=== PATIENT | male | born 1955 | race Caucasian/White ===

== ENCOUNTER 2018-01-09 08:11 | Emergency (ER) | payer OTHER ==
[2018-01-09 08:29] VITALS: BP 106/67
--- NOTE | 2018-01-09 08:50 | ED ---
Upper Extremity Pain - HPI Summary HPI Summary: 62 yr old male with the complaint of right anterior shoulder pain. Onset a month ago when he was pushing himself up off the bed. He felt a strain in the shoulder and has had pain since then, worse with trying to tuck his shirt in from behind, and worse with overhead movement. Pain is moderate. He has no other complaints. - History of Current Complaint Chief Complaint: UCUpperExtremity Stated Complaint: BILATERAL SHOULDER PAIN Time Seen by Provider: 01/09/18 08:34 - Allergies/Home Medications Allergies/Adverse Reactions: Allergies Allergy/AdvReac Type Severity Reaction Status Date / Time No Known Allergies Allergy Verified 01/09/18 08:30 Home Medications: Home Medications Furosemide TAB* [Lasix TAB*] 20 mg PO DAILY 01/09/18 [History Confirmed 01/09/18 ] Nadolol TAB* [Corgard TAB*] 40 mg PO DAILY 01/09/18 [History Confirmed 01/09/18] Ondansetron HCl [Zofran] 8 mg PO DAILY PRN 01/09/18 [History Confirmed 01/09/18] RiFAXimin* [Xifaxan*] 550 mg PO BID 01/09/18 [History Confirmed 01/09/18] Rivaroxaban TAB(*) [Xarelto 10 mg (*)] 10 mg PO DAILY 01/09/18 [History Confirmed 01/09/18] Spironolactone TAB* [Aldactone TAB*] 300 mg PO DAILY 01/09/18 [History Confirmed 01/09/18] buPROPion TAB* [Wellbutrin TAB*] 300 mg PO TID 01/09/18 [History Confirmed 01/09] PMH/Surg Hx/FS Hx/Imm Hx Cardiovascular History: Reports: Hx Hypertension GI History: Reports: Hx Gastrointestinal Bleed - Surgical History Surgery Procedure, Year, and Place: tonsilectomy, R wrist surgery Infectious Disease History: No Infectious Disease History: Reports: Hx Hepatitis - Treated 2016 Denies: Traveled Outside the [place] in Last 30 Days - Family History Known Family History: Positive: Hypertension Negative: Cardiac Disease, Diabetes - Social History Alcohol Use: None Substance Use Type: Reports: None Hx Tobacco Use: Yes Smoking Status (MU): Light Every Day Tobacco Smoker Type: Cigarettes Amount Used/How Often: 1 PPD Length of Time of Smoking/Using Tobacco: 42 Years Have You Smoked in the Last Year: Yes Review of Systems Positive: Other - shoulder pain All Other Systems Reviewed And Are Negative: Yes Physical Exam Triage Information Reviewed: Yes Vital Signs On Initial Exam: Initial Vitals Temp Pulse Resp BP Pulse Ox 98.1 F 93 18 106/67 100 01/09/18 08:23 01/09/18 08:23 01/09/18 08:23 01/09/18 08:23 01/09/18 08:23 Vital Signs Reviewed: Yes Appearance: Positive: Well-Appearing, No Pain Distress Skin: Positive: Warm Head/Face: Positive: Normal Head/Face Inspection Eyes: Positive: EOMI ENT: Positive: Normal ENT inspection Neck: Positive: Nontender Respiratory/Lung Sounds: Positive: Other - normal respirator effort. Cardiovascular: Positive: Pulses are Symmetrical in both Upper and Lower Extremities - normal cap refill Abdomen Description: Negative: Distended Musculoskeletal: Positive: Other - tender over the right anterior shoulder, worse with lifting beyond 90 degrees Neurological: Positive: Sensory/Motor Intact, Alert, Oriented to Person Place, Time, CN Intact II-III Psychiatric: Positive: Normal - Nancy Coma Scale Best Eye Response: 4 - Spontaneous Best Motor Response: 6 - Obeys Commands Best Verbal Response: 5 - Oriented Coma Scale Total: 15 Diagnostics - Vital Signs Vital Signs Temp Pulse Resp BP Pulse Ox 01/09/18 08:23 98.1 F 93 18 106/67 100 - Laboratory Lab Statement: Any lab studies that have been ordered have been reviewed, and results considered in the medical decision making process. - Radiology right shoulder Xray Interpretation: No Acute Changes Radiology Interpretation Completed By: Radiologist - Ac joint arthritis Course/Dx - Course Course Of Treatment: 62 yr old with ac joint arthritis, and likely rotator cuff injury. DC home to follow up with orthopedics. - Diagnoses Provider Diagnoses: Acromioclavicular joint arthritis, Rotator cuff injury Discharge - Sign-Out/Discharge Documenting (check all that apply): Discharge/Admit/Transfer - Discharge Plan Condition: Good Disposition: HOME Patient Education Materials: Osteoarthritis (ED), Rotator Cuff Injury (ED) Referrals: ERNST Knight [Primary Care Provider] - Segun Linton MD [Medical Doctor] - 2 Days - Billing Disposition and Condition Condition: GOOD Disposition: HOME
--- NOTE | 2018-01-09 09:10 | RAD ---
Indication: Right anterior shoulder pain. 4 views of the right shoulder demonstrates AC joint arthritis. No fracture is noted. No other bone or joint abnormality is noted. IMPRESSION: AC joint arthritis without fracture.
== END 2018-01-09 09:38 | disposition home or self-care (01) ==
LOC: UCCORT 08:11
DX: M19.011 Primary osteoarthritis, right shoulder (principal); S46.001A Unspecified injury of muscle(s) and tendon(s) of the rotator cuff of right shoulder, initial encounter; X58.XXXA Exposure to other specified factors, initial encounter; Y93.9 Activity, unspecified; Y92.9 Unspecified place or not applicable; I10 Essential (primary) hypertension; F17.210 Nicotine dependence, cigarettes, uncomplicated
CPT/HCPCS: 99211; G0463

== ENCOUNTER 2018-11-12 09:53 | Emergency (ER) | payer OTHER ==
[2018-11-12 10:18] VITALS: BP 98/59
--- NOTE | 2018-11-12 10:46 | UC ---
Throat Pain/Nasal Sandor HPI - HPI Summary HPI Summary: "My mouth hurts." He has been sick and on antibiotics for the last week due to cough. He started seeing PCP on Tuesday. He was seen again Tuesday. Tuesday he was sent to ED and admitted for pneumonia and discharged yesterday. He has been fairly well since. No fevers besides 99 degree temp last night. He is on levaquin. No hemoptysis. He has been eating and drinking fairly well since discharge. He denies HIV and says he has been tested. REcords reviewed from pain management and he is not on immunosuppressants but did have HEP c which was treated and does have liver failure followed by specialist in [place]. He denies DM. He has had wt loss but tells me that his pcp is well aware of this. - History of Current Complaint Chief Complaint: UCRespiratory Stated Complaint: TONGUE CONCERN,SORE THROAT,COUGH Time Seen by Provider: 11/12/18 10:19 Hx Obtained From: Patient Onset/Duration: Gradual Onset, Lasting Days Severity: Severe Pain Intensity: 9 Cough: Sputum Appears - clear at the moment. Associated Signs & Symptoms: Positive: Dysphagia. Negative: Sinus Discomfort, Fever, Vomiting Related History: Smoking - Allergies/Home Medications Allergies/Adverse Reactions: Allergies Allergy/AdvReac Type Severity Reaction Status Date / Time No Known Allergies Allergy Verified 11/12/18 10:18 Home Medications: Home Medications levoFLOXacin [Levaquin] 500 mg PO DAILY 11/12/18 [History Confirmed 11/12/18] PMH/Surg Hx/FS Hx/Imm Hx Previously Healthy: No Other History Of: Hepatitis C - treated and resolved - Surgical History Surgical History: Yes Surgery Procedure, Year, and Place: tonsilectomy, R wrist surgery - Family History Known Family History: Positive: Hypertension Negative: Cardiac Disease, Diabetes - Social History Lives: With Family Alcohol Use: None Substance Use Type: Marijuana Substance Use Comment - Amount & Last Used: Smoking Status (MU): Heavy Every Day Tobacco Smoker Type: Cigarettes Amount Used/How Often: 1 PPD Length of Time of Smoking/Using Tobacco: 42 Years Have You Smoked in the Last Year: Yes Household Exposure Type: Cigarettes - Immunization History Most Recent Influenza Vaccination: Not the 2016/2016 Season Review of Systems All Other Systems Reviewed And Are Negative: Yes ENT: Positive: Sore Throat Respiratory: Positive: Cough Musculoskeletal: Positive: Arthralgia Physical Exam Triage Information Reviewed: Yes Appearance: No Pain Distress, Thin - Sitting up. Changes position to the bed without assistance. Non toxic. Talking in full sentences without any increased work of breathing. Vital Signs: Initial Vital Signs Temp 98.6 F 11/12/18 10:05 Pulse 65 11/12/18 10:05 Resp 18 11/12/18 10:05 BP 98/59 11/12/18 10:05 Pulse Ox 94 11/12/18 10:05 Vital Signs Reviewed: Yes Eyes: Positive: Conjunctiva Clear. Negative: Conjunctiva Inflamed ENT: Positive: Uvula midline, Other - diffuse, thick discharge in the mouth. Whitish.. Negative: Nasal congestion, Nasal drainage Neck: Positive: Supple, Nontender, No Lymphadenopathy Respiratory: Positive: Lungs clear, Normal breath sounds, No respiratory distress, No accessory muscle use. Negative: Respiratory distress, Decreased breath sounds, Accessory muscle use, Crackles, Rhonchi, Stridor, Wheezing Cardiovascular Exam: Other - He gets up and walks to exam table and HR remains at 65. Cap refill 1 second in the hand. Mucosa moist. Cardiovascular: Positive: No Murmur, Pulses Normal, Brisk Capillary Refill Abdomen Description: Positive: No Organomegaly, Soft. Negative: Distended, Guarding Musculoskeletal: Positive: Strength Intact, ROM Intact, No Edema Neurological: Positive: Alert, Muscle Tone Normal. Negative: Fatigued Psychological: Positive: Age Appropriate Behavior Skin: Negative: Rashes Throat Pain/Nasal Course/Dx - Course Course Of Treatment: PCP is well aware of situation and complaints. He agrees to see pcp tomorrow and tells me that he does not typically need appts and can walk it. ED has him f/u with PCP tomorrow as well. - Differential Dx/Diagnosis Provider Diagnosis: Thrush, oral Discharge - Sign-Out/Discharge Documenting (check all that apply): Patient Departure All imaging exams completed and their final reports reviewed: No Studies - Discharge Plan Condition: Good Disposition: HOME Prescriptions: Fluconazole 100 MG TAB* [Diflucan 100 MG TAB*] 100 mg PO DAILY #3 tab Nystatin SUSPENSION ORAL SYR* 100,000 units PO TID #200 udc Patient Education Materials: Oral Candidiasis (ED) Referrals: No Primary Care Phys,NOPCP [Primary Care Provider] - Additional Instructions: See your primary care doctor tomorrow as we described. - Billing Disposition and Condition Condition: GOOD Disposition: Home
== END 2018-11-12 10:43 | disposition home or self-care (01) ==
LOC: UCCORT 09:53
DX: B37.0 Candidal stomatitis (principal); J18.9 Pneumonia, unspecified organism; F17.210 Nicotine dependence, cigarettes, uncomplicated; Z79.2 Long term (current) use of antibiotics
CPT/HCPCS: 99212; G0463